=== PATIENT | female | born 1995 | race Caucasian/White ===

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

== ENCOUNTER 2019-10-03 09:46 | Inpatient (IN) ==
[2019-10-03] MEDS ORDERED: DEXTROSE 5%-LACTATED RINGERS 1,000 ML IV PRN (11:44)
[2019-10-03] MEDS ORDERED: OXYTOCIN/DEXTROSE 5%-WATER 30 UNITS/500 ML BAG IV ONE ×2 (11:44→17:20)
[2019-10-03] MEDS ORDERED: RINGER'S SOLUTION,LACTATED 1,000 ML IV ONE (11:44)
[2019-10-03] MEDS ORDERED: ONDANSETRON 4 MG TAB.RAPDIS PO PRN (11:44)
[2019-10-03] MEDS ORDERED: BUPIVACAINE HCL/0.9 % NACL/PF 250 ML EP PRN (12:57)
[2019-10-03] MEDS ORDERED: ONDANSETRON HCL/PF 2 MG/ML VIAL IV PRN (12:57)
[2019-10-03] MEDS ORDERED: NALOXONE HCL 1 MG/1 ML SYRG IV PRN (12:57)
[2019-10-03] MEDS ORDERED: fentaNYL CITRATE/PF 50 MCG/ML AMPUL IT SCH (13:00)
--- NOTE | 2019-10-03 13:04 | ANES ---
Anesthesia Pre Procedure Eval Vitals/Labs: Last Vital Signs Temp 37.0 C 10/03/19 11:50 Pulse 98 10/03/19 11:50 Resp 16 10/03/19 11:50 BP 132/76 10/03/19 11:50 Pulse Ox 99 10/03/19 11:50 HOME MEDICATIONS famotidine 20 mg tablet 20 mg PO DAILY 08/30/19 [Last Taken Unknown] Vits96/Iron Fum/Folic [ S] 1 tab PO DAILY 10/03/19 [Last Taken Unknown] Allergies/Adverse Reactions: Allergies Allergy/AdvReac Type Severity Reaction Status Date / Time No Known Allergies Allergy Verified 10/03/19 10:50 - Planned Procedure Planned Procedure: CSE for labor analgesia Medication List Reviewed:: Yes Allergies Verified: Yes Medical History (Last Reviewed 10/03/19 @ 13:02 by Klaus Gay CRNA) Pain of right thumb (Acute) Influenza vaccination declined by patient (Acute) Onset Date: 05/25/18 Dermatophytosis Onset Date: 11/08/12 Body piercing Onset Date: Unknown Psoriasis Onset Date: 01/26/13 Abdominal pain (Resolved) Onset Date: Unknown Acute UTI (Resolved) Onset Date: Unknown Bacterial vaginitis Onset Date: 02/05/16 Chest wall pain (Resolved) Onset Date: Unknown Contusion of hand, right (Resolved) Onset Date: Unknown Dislocation of patella Onset Date: ~2009 right-closed Fall (Resolved) Onset Date: Unknown Otitis media Onset Date: Unknown Pierced ear infection (Resolved) Onset Date: Unknown Plantar warts Onset Date: 11/08/12 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 Right ankle sprain (Resolved) Onset Date: Unknown Shoulder pain Onset Date: Unknown right Sore throat (Resolved) Onset Date: Unknown Surgical History (Last Reviewed 10/03/19 @ 13:02 by Klaus Gay CRNA) History of placement of ear tubes Onset Date: Unknown S/P right knee arthroscopy Onset Date: 09/26/11 Vaginal delivery (Resolved) Family History (Last Reviewed 10/03/19 @ 13:02 by Klaus Gay CRNA) Mother Diabetes Father Diabetes Grandfather Diabetes CVA (cerebral vascular accident) Uncle Diabetes Grandmother Myocardial infarction Grandfather CVA (cerebral vascular accident) Hypoglycemia Aunt Hypoglycemia x3 - Family Anesthesia History Family History:: no untoward family reactions to anesthesia, no familial bleeding tendencies, no family history of clotting disorders, no family history of premature - Airway/Neck/Teeth Within Normal Limits:: Yes Teeth Condition: intact Neck Exam: full range of motion Mallampatti Score: 2 Thyromental (T-M) distance: > 6 cm Mandibulo Hyoid distance: > 3 cm - Respiratory Respiratory Physical: lungs clear Smoking Status: Former smoker Sleep Apnea currently treated: No Sleep Apnea by current assessment: No - Cardiovascular Tolerate Activity: Fair Heart Sounds: S1 & S2, Regular - Gastrointestinal NPO since: 2399 - Anesthesia Assessment and Plan ASA Class: PS, II, E Anesthesia Type Plan: Epidural - CSE for labor analgesia
--- NOTE | 2019-10-03 13:18 | HP ---
Chief Complaint - Chief Complaint Date of Service: 10/03/19 Time of Service: 11:45 Chief Complaint: labor History of Present Illness: 24 yo at 39 1/7 weeks admitted to L&D for active labor. This uncomplicated. Rh positive Rubella immune GBS negative Medical History (Last Reviewed 10/03/19 @ 13:22 by Robert Christie DO) Pain of right thumb (Acute) Influenza vaccination declined by patient (Acute) Onset Date: 05/25/18 Dermatophytosis Onset Date: 11/08/12 Body piercing Onset Date: Unknown Psoriasis Onset Date: 01/26/13 Abdominal pain (Resolved) Onset Date: Unknown Acute UTI (Resolved) Onset Date: Unknown Bacterial vaginitis Onset Date: 02/05/16 Chest wall pain (Resolved) Onset Date: Unknown Contusion of hand, right (Resolved) Onset Date: Unknown Dislocation of patella Onset Date: ~2009 right-closed Fall (Resolved) Onset Date: Unknown Otitis media Onset Date: Unknown Pierced ear infection (Resolved) Onset Date: Unknown Plantar warts Onset Date: 11/08/12 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 Right ankle sprain (Resolved) Onset Date: Unknown Shoulder pain Onset Date: Unknown right Sore throat (Resolved) Onset Date: Unknown Surgical History: Surgical History (Last Reviewed 10/03/19 @ 13:02 by Klaus Gay CRNA) History of placement of ear tubes Onset Date: Unknown S/P right knee arthroscopy Onset Date: 09/26/11 Vaginal delivery (Resolved) Family History: Family History (Last Reviewed 10/03/19 @ 13:02 by Klaus Gay CRNA) Mother Diabetes Father Diabetes Grandfather Diabetes CVA (cerebral vascular accident) Uncle Diabetes Grandmother Myocardial infarction Grandfather CVA (cerebral vascular accident) Hypoglycemia Aunt Hypoglycemia x3 Social History: (Last Updated 09/29/19 @ 10:20 by Robert Christie DO) Social History: adopted: No skilled nursing: No Marital status: Single household members: significant other, children number of children: 1 current occupational status: employed 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[employer] current occupational exposures/hazards: No Highest education level completed: some college, no degree Sexually Active: Yes Service: No Tobacco: Smoking Status: Former smoker Alcohol: alcohol intake: current alcohol intake frequency: holiday/special occasion details: No alcohol since + UPT Substance Use: substance use type: marijuana, former substance user Dietary Habits: caffeine: Yes caffeine comment: 1/day Exercise: Physical activity type: walking frequency: 3-4 times per week Romi/Voodoo: agree to transfusion: Yes Review Of Systems (GEN) - Review of Systems Generalized/Overall Review: Present: No Symptoms Reported EENTM: Present: No Symptoms Reported Respiratory: Present: No Symptoms Reported Cardiac: Present: No Symptoms Reported Abdominal: Present: Other - contractions Genitourinary: Present: Other - vaginal pressure Musculoskeletal: Present: No Symptoms Reported Neurological: Present: No Symptoms Reported Skin: Present: No Symptoms Reported Endocrine: Present: No Symptoms Reported Immunizations: IMMUNIZATION HX Immunizations Up to Date Yes History of Influenza Vaccine Yes Hx Pneumococcal Vaccination No Allergies/Adverse Reactions: Allergies Allergy/AdvReac Type Severity Reaction Status Date / Time No Known Allergies Allergy Verified 10/03/19 10:50 Home Medications: HOME MEDICATIONS famotidine 20 mg tablet 20 mg PO DAILY 08/30/19 [Last Taken Unknown] Vits96/Iron Fum/Folic [ S] 1 tab PO DAILY 10/03/19 [Last Taken Unknown] Exam - Exam Vital Signs: Vital Signs - Last Taken Temp 37.0 C 10/03/19 11:50 Pulse 98 10/03/19 11:50 Resp 16 10/03/19 11:50 BP 132/76 10/03/19 11:50 Pulse Ox 99 10/03/19 11:50 Constitutional: Present: Alert, Oriented x3, Cooperative ENT Exam: Present: hearing grossly normal Breasts: Present: Exam deferred Respiratory: Present: lungs clear, no respiratory distress Cardiovascular/Chest: Present: regular rate, rhythm, no edema Abdomen: Present: soft, nontender, no rebound tenderness, other - gravid /Rectal: Present: Other - cervix 4/50/-2 Extremity: Present: no pedal edema, no calf tenderness Skin Exam: Present: normal color, warm/dry, no cyanosis Lymphatic: Present: no adenopathy Neurologic: Present: alert, normal mood/affect, oriented x 3 Appearance: Present: appropriate appearance, appropriate insight Eye contact: Present: cooperative, good eye contact Thoughts: Present: normal thought pattern Assessment/Plan - Assessment/Plan (1) Labor established Assessment: Admit for routine management of labor. Epidural PRN. Problem: Acute
--- NOTE | 2019-10-03 13:25 | ANES ---
Post Anesthesia Discharge - Transfer of Care Transfer of Care handoff given to nurse: Yes - Discharge from PACU Discharge from PACU when meets criteria: Yes - Comfortable post CSE.
--- NOTE | 2019-10-03 13:27 | PN ---
Progess Note - Interim Date: 10/03/19 Time: 11:50 Narrative: 10/03/19 13:26 Patient rating contractions 5 out of 10 Vital signs stable. FHT: 140 baseline, reassuring contractions q 3-4 min Cervix: 4-5/30/-2, AROM-clear Impression: Intrauterine at 39-1/7 weeks in labor Plan: Epidural PRN.
--- NOTE | 2019-10-03 13:27 | ANES ---
Anesthesia Procedure Note Procedure Note: ANESTHESIA PROCEDURE NOTE Date of Procedure: 10/03/2019 Time of procedure: 1 PM. Performed by: JAMES Salmeron CRNA, MSN [employer]: Georgiana Brown RN. Preprocedure diagnosis: Active labor, labor pain. Post procedure diagnosis: Same. Procedure:Epidural for labor analgesia L3-4. Indications: Labor pain. Findings: See below. Details of the procedure: The patient was placed on the side of the bed in sitting positionand prepped with DuraPrep then draped in a sterile fashion. Lidocaine 1% was infiltrated to the skin and subcutaneous tissues at the level of the L3-4 interspace. An 18-gauge Touhy needle was used to approach the epidural space with loss of resistance technique. Once loss of resistance was achieved a 27-gauge spinal needle was passed through the epidural needle and CSF was contacted. After CSF returned, 20 mcg of fentanyl was injected in the spinal needle was removed the epidural catheter was then threaded approximately 4 cm in the epidural needle was removed. The catheter was taped in place and after careful aspiration 3 mL of 1.5% lidocaine with 1-200,000 epinephrine was injected without change in maternal heart rate or sensorium. . EBL: Minimal. Fluids: N/A. Specimen: N/A. Post procedure condition: The patient tolerated the procedure well with good relief. No complications were noted. Thank you for this consultation. Klaus Gay CRNA, ARNP, MSN
--- NOTE | 2019-10-03 13:41 | ANES ---
Post Anesthesia Assessment - Vital Signs Vitals: Last Vital Signs Temp 37.0 C 10/03/19 11:50 Pulse 98 10/03/19 11:50 Resp 16 10/03/19 11:50 BP 132/76 10/03/19 11:50 Pulse Ox 99 10/03/19 11:50 Airway Patency: Normal - Mental Status Level Of Consciousness: Awake, Alert, Appropriate - Pain Level Pain Score: 0 - N/V Assessment Nausea/Vomiting Presence: None Dehydration:: No
[2019-10-03] MEDS ORDERED: BISACODYL 10 MG SUPP.RECT RC PRN (17:20)
[2019-10-03] MEDS ORDERED: BENZOCAINE/MENTHOL 81 SPRAY CAN TP PRN (17:20)
[2019-10-03] MEDS ORDERED: GLYCERIN/WITCH HAZEL LEAF 40 APPL BOX TP PRN (17:20)
[2019-10-03] MEDS ORDERED: HYDROCORTISONE 30 APPL TUBE TP PRN (17:20)
[2019-10-03] MEDS ORDERED: IBUPROFEN 800 MG TABLET PO PRN (17:20)
[2019-10-03] MEDS ORDERED: oxyCODONE HCL/ACETAMINOPHEN 1 TAB TABLET PO PRN (17:20)
[2019-10-03] MEDS ORDERED: SENNOSIDES 8.6 MG TABLET PO PRN (17:20)
--- NOTE | 2019-10-03 17:23 | OR ---
Operative Report - Dictated Report Narrative: Spontaneous vaginal delivery of vigorously crying viable male at 1759 on 10/03/2019 with Apgars 9 and 9, weighing 3897 g in PRESLEY position with left arm at chin and tight nuchal/body/leg cord. Cord clamping delayed approximately 1 minute Placenta delivered complete, intact, with three vessel cord Estimated blood loss: Less than 50 ml Anesthesia: Epidural Lacerations: None History for MU History for Definition: * The number of deliveries resulting in a live the patient experienced prior to current hospitalization * The previous delivery of live twins or any live multiple gestation is considered one live event. *If primagravida or nulliparous is documented select zero for the number of previous live births. Live Events: Live Events: 1
[2019-10-03] MEDS: DOCUSATE SODIUM 100 MG CAPSULE PO SCH (20:18)
--- NOTE | 2019-10-04 07:24 | PN ---
Subjective - Date and Time Seen Date: 10/04/19 Time: 07:24 Objective - Vitals Vitals: Last Vital Signs Temp 37.2 C 10/04/19 06:50 Pulse 95 10/04/19 06:50 Resp 16 10/04/19 06:50 BP 129/82 10/04/19 06:50 Pulse Ox 99 10/04/19 06:50 Patient denies complaints. Lochia wnl abdomen - soft, nontender Uterus -firm, at umbilicus - 1 no calf tenderness Impression: day #1 - s/p spontaneous vaginal delivery. Plan: Continue routine care Cauti Physician Documentation - Urinary Catheter Management Urethral (Victor) Date of Insertion: 10/03/19 Time of Insertion: 13:53 Assessment/Plan - Problems/Diagnosis (1) Labor established Problem: Acute
[2019-10-04] MEDS: DOCUSATE SODIUM 100 MG CAPSULE PO SCH ×2 (12:19→22:21)
[2019-10-04] MEDS: PRENATAL VITS96/IRON FUM/FOLIC 1 TAB TABLET PO SCH (12:19)
[2019-10-04] MEDS: IBUPROFEN 800 MG TABLET PO PRN (15:21)
[2019-10-05] MEDS: IBUPROFEN 800 MG TABLET PO PRN (00:50)
[2019-10-05 06:49] VITALS: BP 129/78
[2019-10-05] MEDS: PRENATAL VITS96/IRON FUM/FOLIC 1 TAB TABLET PO SCH (08:28)
[2019-10-05] MEDS: DOCUSATE SODIUM 100 MG CAPSULE PO SCH (08:28)
--- NOTE | 2019-10-05 11:29 | PN ---
Subjective - Date and Time Seen Date: 10/05/19 Time: 11:28 Objective - Vitals Vitals: Last Vital Signs Temp 36.5 C 10/05/19 06:47 Pulse 84 10/05/19 06:47 Resp 14 10/05/19 06:47 BP 129/78 10/05/19 06:47 Pulse Ox 98 10/05/19 06:47 Patient denies complaints. Breast-feeding well Lochia wnl abdomen - soft, nontender Uterus -firm, at umbilicus - 2 no calf tenderness Impression: day #2 - s/p spontaneous vaginal delivery. Plan: Routine discharge instructions Cauti Physician Documentation - Urinary Catheter Management Urethral (Victor) Date of Insertion: 10/03/19 Time of Insertion: 13:53 Assessment/Plan - Problems/Diagnosis (1) Labor established Problem: Acute
== END 2019-10-05 12:15 | disposition home or self-care (01) | DRG 807 ==
LOC: OB 10:36
PROVIDERS: ADMIT Obstetrics & Gynecology; ATTEND Obstetrics & Gynecology
CPT/HCPCS: 59025